=== PATIENT | female | born 1995 | race Caucasian/White ===

== ENCOUNTER 2021-08-07 13:11 | Emergency (ER) | payer MEDICARE, MEDICAID ==
[2021-08-07] MEDS ORDERED: Lorazepam 2 MG/ML VIAL ONE (13:26)
[2021-08-07] MEDS ORDERED: Morphine 4 MG/ML VIAL ONE (13:26)
[2021-08-07] MEDS ORDERED: Silver Sulfadiazine 50 GM TUBE ONE (13:58)
== END 2021-08-07 14:23 | disposition home or self-care (01) ==
LOC: ERS 13:11
DX: T24.202A Burn of second degree of unspecified site of left lower limb, except ankle and foot, initial encounter (principal); T24.201A Burn of second degree of unspecified site of right lower limb, except ankle and foot, initial encounter; T31.0 Burns involving less than 10% of body surface; X10.0XXA Contact with hot drinks, initial encounter; J44.9 Chronic obstructive pulmonary disease, unspecified; F17.210 Nicotine dependence, cigarettes, uncomplicated
CPT/HCPCS: 96374; 96375; J2060; J2270